=== PATIENT | female | born 1975 | race Caucasian/White ===

== ENCOUNTER 2025-01-23 08:39 | Inpatient (IN) | payer BC ==
[~2025-01-23] VITALS: Ht 149.9 cm; Wt 47.0 kg
[2025-01-23 09:46] LABS: BASOPHILS ABSOLUTE AUTO 0.10 K/mm3 (0.00-0.23); BASOPHILS PERCENT AUTO 1 % (0-2); EOSINOPHILS ABSOLUTE AUTO 0.19 K/mm3 (0.00-0.68); EOSINOPHILS PERCENT AUTO 2 % (0-6); Hematocrit 41.5 % (33.0-51.0); Hemoglobin 13.7 g/dL (11.5-16.0); IMMATURE GRAN ABSOLUTE AUTO 0.02 K/mm3 (0.00-0.10); IMMATURE GRAN PERCENT AUTO 0 % (0-1); LYMPHOCYTES ABSOLUTE AUTO 1.66 K/mm3 (0.84-5.20); LYMPHOCYTES PERCENT AUTO 17 % (21-46); MONOCYTES ABSOLUTE AUTO 0.74 K/mm3 (0.16-1.47); MONOCYTES PERCENT AUTO 8 % (4-13); Mean Corpuscular HGB Conc 33.0 g/dL (31.5-36.5); Mean Corpuscular Volume 86 fL (80-100); NEUTROPHILS ABSOLUTE AUTO 7.08 K/mm3 (1.96-9.15); NEUTROPHILS PERCENT AUTO 72 % (41-73); NRBC ABSOLUTE 0.00 K/mm3 (0.00-0.02); NRBC Auto 0.0 /100 WBC (0.0-0.2); Platelet Count 382 K/mm3 (150-400); RDW Coefficient Variation 13.8 % (11.7-14.2); RDW Standard Deviation 43.4 fL (35.1-46.3)
[2025-01-23 10:27] LABS: Alanine Aminotransfer (ALT/SGP 66.0 U/L (12-78); Albumin, Blood 4.0 g/dL (3.4-5.0); Albumin/Globulin Ratio 1.2 (0.8-1.8); Anion Gap 9.0 mmol/L (3-11); Aspartate Aminotrans (AST/SGOT 24.0 U/L (12-37); Bilirubin, Total 0.7 mg/dL (0.1-1.0); Blood Urea Nitrogen 11.0 mg/dL (8-24); CO2, Blood 23.0 mmol/L (21-32); Calcium, Blood 8.7 mg/dL (8.5-10.1); Chloride, Blood 106.0 mmol/L (98-108); Creatinine, Blood 0.72 mg/dL (0.40-1.00); Globulin, Blood 3.3 g/dL (2.2-4.0); Glucose, Blood 96.0 mg/dL (70-99); Potassium, Blood 4.3 mmol/L (3.5-5.5); Sodium, Blood 134.0 mmol/L (136-145); Total Protein, Blood 7.3 g/dL (6.4-8.2)
[2025-01-23] MEDS ORDERED: NS 1,000 ML IV SCH (11:25)
[2025-01-23] MEDS ORDERED: Ipratropium/Albuterol SulF 2.5-0.5MG/3 ML Amp INH ONE (13:10)
[2025-01-23] MEDS ORDERED: Ipratropium/Albuterol SulF 2.5-0.5MG/3 ML Amp INH SCH (14:35)
[2025-01-23] MEDS ORDERED: FLU VACC TS2025-26(6MOS UP)/PF 45 MCG/0.5 ML SYRINGE IM SCH (14:35)
[2025-01-23] MEDS ORDERED: ESTRADIOL TD (15:55)
[2025-01-23] MEDS ORDERED: SYNTHROID125 MC1 PO (15:56)
[2025-01-23] MEDS ORDERED: PROG100 PO (15:57)
[2025-01-23 16:55] VITALS: BP 125/79
[2025-01-23] MEDS ORDERED: OMEP20ER PO (17:24)
[2025-01-23] MEDS ORDERED: ALBU90OI INH (17:24)
[2025-01-23] MEDS ORDERED: FLUT1DIS2 INH (17:25)
--- NOTE | 2025-01-23 18:23 | NUR ---
ADMISSION PT ADMITTED TO UNIT FROM ER. PT ABLE TO STAND AND AMBULATE INDEPENDENTLY TO BED WITHOUT DIFFICULTY. ARRIVES ON 3 L/MIN VIA NC, SATING 92-96%. PT REPORTS SOB IMPROVED, PT HAS NOT COUGHED UP ANY BLOOD SINCE ARRIVING TO UNIT. LUNG SOUNDS DIMINISHED T/O, MORE SO ON R SIDE R/T PNEUMOTHORAX. 2 RN SKIN CHECK COMPLETED, BRUISING ONLY. MED REC COMPLETED - PT NO LONGER TAKES PROGESTERONE, RN UPDATED PROVIDER AND GOT TELEPHONE ORDERS TO DC PROGESTERONE. PT ORIENTED TO CALL SYSTEM AND FALL PREVENTION. PT CURRENTLY RESTING IN BED WITH BED IN LOWEST POSITION AND CALL LIGHT IN REACH. SPOUSE AT BEDSIDE.
[2025-01-23 20:41] VITALS: BP 98/76
[2025-01-24 04:34] VITALS: BP 91/70
--- NOTE | 2025-01-24 05:21 | NUR ---
SHIFT SUMMARY PT C/O RIGHT UPPER CHEST PAIN, WORSE WITH COUGHING- TYLENOL GIVEN PER [facility] WTIH RELIEF STATED. PT OOB TO BATHROOM INDEPENDENTLY WITH STEADY GAIT. CONTINUOUS PULSE OX PLACED- PT MAINTAINED ON 3L NC WITH O2 SATS > 94%. PT SLEPT LONG INTERVALS DURING THE NIGHT.
[2025-01-24 05:23] LABS: BASOPHILS ABSOLUTE AUTO 0.03 K/mm3 (0.00-0.23); BASOPHILS PERCENT AUTO 0 % (0-2); EOSINOPHILS ABSOLUTE AUTO 0.00 K/mm3 (0.00-0.68); EOSINOPHILS PERCENT AUTO 0 % (0-6); Hematocrit 40.9 % (33.0-51.0); Hemoglobin 13.5 g/dL (11.5-16.0); IMMATURE GRAN ABSOLUTE AUTO 0.03 K/mm3 (0.00-0.10); IMMATURE GRAN PERCENT AUTO 0 % (0-1); LYMPHOCYTES ABSOLUTE AUTO 1.03 K/mm3 (0.84-5.20); LYMPHOCYTES PERCENT AUTO 10 % (21-46); MONOCYTES ABSOLUTE AUTO 0.53 K/mm3 (0.16-1.47); MONOCYTES PERCENT AUTO 5 % (4-13); Mean Corpuscular HGB Conc 33.0 g/dL (31.5-36.5); Mean Corpuscular Volume 87 fL (80-100); NEUTROPHILS ABSOLUTE AUTO 8.70 K/mm3 (1.96-9.15); NEUTROPHILS PERCENT AUTO 84 % (41-73); NRBC ABSOLUTE 0.00 K/mm3 (0.00-0.02); NRBC Auto 0.0 /100 WBC (0.0-0.2); Platelet Count 393 K/mm3 (150-400); RDW Coefficient Variation 13.4 % (11.7-14.2); RDW Standard Deviation 42.5 fL (35.1-46.3)
[2025-01-24 06:20] LABS: Alanine Aminotransfer (ALT/SGP 55.0 U/L (12-78); Albumin, Blood 3.6 g/dL (3.4-5.0); Albumin/Globulin Ratio 1.2 (0.8-1.8); Anion Gap 11.0 mmol/L (3-11); Aspartate Aminotrans (AST/SGOT 16.0 U/L (12-37); Bilirubin, Total 0.4 mg/dL (0.1-1.0); Blood Urea Nitrogen 10.0 mg/dL (8-24); CO2, Blood 22.0 mmol/L (21-32); Calcium, Blood 8.5 mg/dL (8.5-10.1); Chloride, Blood 106.0 mmol/L (98-108); Creatinine, Blood 0.55 mg/dL (0.40-1.00); Globulin, Blood 3.0 g/dL (2.2-4.0); Glucose, Blood 120.0 mg/dL (70-99); Potassium, Blood 3.6 mmol/L (3.5-5.5); Sodium, Blood 135.0 mmol/L (136-145); Total Protein, Blood 6.6 g/dL (6.4-8.2)
[2025-01-24 07:29] VITALS: BP 98/56
[2025-01-24] MEDS ORDERED: Enoxaparin 40 MG/0.4 ML SYR SC SCH (09:00)
[2025-01-24] MEDS ORDERED: Morphine Sulfate 4 MG/1 ML Injection IV PRN (09:15)
--- NOTE | 2025-01-24 14:32 | NUR ---
UPon receiving a referral for spiritual care, I visited the patient. SHe immediately shares about her newer diagnosis of cancer and about the fears that she has. We talk about her her family, her support system and we spent quit some time exploring her spiritual journey and the beliefs she has. We discuss end of life, the after life and mental/emotional/spiritual ch the goes hand in hand with the physical ch. I reinforced helpful attidues and perspectives, normalized her feelings and fears and provided therapeutic listening, theological insights, anxiety containment and prayer. The patient responded well and showed signs greater peace. I will continue to remain available to the patient and family.
[2025-01-24] MEDS ORDERED: Ondansetron HCl 2 MG / ML 2ML Vial IV PRN (15:00)
[2025-01-24 15:43] VITALS: BP 107/64
--- NOTE | 2025-01-24 17:17 | NUR ---
PT ALERT AND ORIENTED X4, CONTINUES TO BE ON 3L NC WITH SATS 95-98%, MORPHINE IV PRN FOR EASE OF BREATHING-PER PT THIS HELPS VERY WELL. PT DID BECOME NAUSEAOUS AND HAD EMESIS X1 AFTER TWO MORPHINE DOSES, ZOFRAN GIVEN AND HELPED TREAT SYMPTOMS. TIME STUDY STATISTICIAN DR MATHEW GAVE PT RESULTS ON LUNG BIOPSIES BEING CANCEROUS-PT SINCE HAS BEEN TEARFUL AND HAS BECOME ANXIOUS. CONSULTS FOR PALLIATIVE CARE, SPIRITUAL CARE ORDERED AND BOTH FOLLOWED UP WITH PATIENT. ANTIANXIETY PRN MED ALSO ORDERED AND AVAILABLE IN [facility]. PT INDEPENDENT IN ROOM, STEADY ON FEET AND ABLE TO SELF MANAGE OXYGEN TUBING. CALL LIGHT IN REACH, PT REQUESTS ASSISTANCE WHEN NEEDED. BEDSIDE TABLE IN REACH.
[2025-01-24 19:26] VITALS: BP 91/62
[2025-01-24 21:33] VITALS: BP 107/68
[2025-01-25 04:36] VITALS: BP 119/84
[2025-01-25 05:10] LABS: BASOPHILS ABSOLUTE AUTO 0.05 K/mm3 (0.00-0.23); BASOPHILS PERCENT AUTO 1 % (0-2); EOSINOPHILS ABSOLUTE AUTO 0.04 K/mm3 (0.00-0.68); EOSINOPHILS PERCENT AUTO 0 % (0-6); Hematocrit 39.7 % (33.0-51.0); Hemoglobin 13.2 g/dL (11.5-16.0); IMMATURE GRAN ABSOLUTE AUTO 0.02 K/mm3 (0.00-0.10); IMMATURE GRAN PERCENT AUTO 0 % (0-1); LYMPHOCYTES ABSOLUTE AUTO 2.16 K/mm3 (0.84-5.20); LYMPHOCYTES PERCENT AUTO 21 % (21-46); MONOCYTES ABSOLUTE AUTO 0.61 K/mm3 (0.16-1.47); MONOCYTES PERCENT AUTO 6 % (4-13); Mean Corpuscular HGB Conc 33.2 g/dL (31.5-36.5); Mean Corpuscular Volume 86 fL (80-100); NEUTROPHILS ABSOLUTE AUTO 7.53 K/mm3 (1.96-9.15); NEUTROPHILS PERCENT AUTO 72 % (41-73); NRBC ABSOLUTE 0.00 K/mm3 (0.00-0.02); NRBC Auto 0.0 /100 WBC (0.0-0.2); Platelet Count 385 K/mm3 (150-400); RDW Coefficient Variation 13.7 % (11.7-14.2); RDW Standard Deviation 42.2 fL (35.1-46.3)
[2025-01-25 05:32] LABS: Alanine Aminotransfer (ALT/SGP 46.0 U/L (12-78); Albumin, Blood 3.6 g/dL (3.4-5.0); Albumin/Globulin Ratio 1.2 (0.8-1.8); Anion Gap 8.0 mmol/L (3-11); Aspartate Aminotrans (AST/SGOT 14.0 U/L (12-37); Bilirubin, Total 0.4 mg/dL (0.1-1.0); Blood Urea Nitrogen 12.0 mg/dL (8-24); CO2, Blood 27.0 mmol/L (21-32); Calcium, Blood 8.6 mg/dL (8.5-10.1); Chloride, Blood 106.0 mmol/L (98-108); Creatinine, Blood 0.58 mg/dL (0.40-1.00); Globulin, Blood 3.0 g/dL (2.2-4.0); Glucose, Blood 92.0 mg/dL (70-99); Potassium, Blood 3.8 mmol/L (3.5-5.5); Sodium, Blood 137.0 mmol/L (136-145); Total Protein, Blood 6.6 g/dL (6.4-8.2)
--- NOTE | 2025-01-25 06:07 | NUR ---
SHIFT SUMMARY: PT IS AOX4, PLEASANT, COOPERATIVE, BUT ALSO A LITTLE TEARFUL AND SAD. GAIT STEADY, PATIENT AMBULATES TO BR INDEPENDENTLY AND CALLS FOR ASSISTANCE APPROPRIATELY. PT C/O RIGHT UPPER CHEST PAIN AND SOME ANXIETY BEFORE BEDTIME, TREATED PER THE APR. PT AMBULATED IN THE HALLWAYS THIS AM. O2 SATS MAINTAINED >95% THIS SHIFT, NO ACUTE EVENTS. PT RELAXING IN BED DRINKING HOT COFFEE, CALL LIGHT AND BEDSIDE TABLE WITHIN REACH.
[2025-01-25 08:01] VITALS: BP 121/69
--- NOTE | 2025-01-25 09:57 | NUR ---
PALLIATIVE CARE CONSULT: CONSULT RECEIVED FOR CANCER WITH NEW DIAGNOSIS. REVIEWED MEDICAL RECORD. NO POLST OR AD ON FILE OR WITH [facility]. PT AWAITING MRI OF HEAD. WAITING FOR FURTHER BIOPSY REPORTS.
[2025-01-25] MEDS ORDERED: BUSP10 PO (15:52)
[2025-01-25] MEDS ORDERED: DOXY100 PO (15:52)
[2025-01-25] MEDS ORDERED: PRED20 PO (15:53)
[2025-01-25 16:35] VITALS: BP 106/83
--- NOTE | 2025-01-25 17:30 | NUR ---
PALLIATIVE CARE NOTE: ATTEMPTED TO SEE PT. ACCORDING TO PRIMARY RN PT WENT ON WALK WITH SPOUSE TO THE CHAPEL.
--- NOTE | 2025-01-25 17:43 | NUR ---
SHIFT SUMMARY: PATIENT IS STAYING ONE MORE NIGHT PER DR. SUE AFTER HE MET WITH THE PATIENT AND WENT OVER HEAD CT RESULTS. PATIENT DOING BETTER WITH NAUSEA NO MORE VOMITING SINCE PO PHENERGAN. FOLLOWED UP WITH PALLATIVE ON PATIENT. PATIENT CURRENTLY ON WALK WITH TO CHAPEL. PLAN OF CARE ONGOING; PLAN IS FOR ONCOLOGY TO BE INPATIENT CONSULTED TOMORROW 01/26/25 PER VIKRAM.
[2025-01-25] MEDS ORDERED: LORazepam 2 MG/ML 1ML Injection IV PRN (18:20)
[2025-01-25 19:27] VITALS: BP 105/70
[2025-01-26 03:38] VITALS: BP 99/71
--- NOTE | 2025-01-26 06:30 | NUR ---
NO ACUTE CHANGES OVERNIGHT. PT BEGAN EVENING WALKING SEVERAL LAPS AROUND THE UNIT. ASSESSMENT REMAINS UNCHANGED FROM PREVIOUS. PT IS ANXIOUS AT TIMES R/T RECENT CX DIAGNOSIS. STATES THAT ATIVAN HELPS A LOT TO BE ABLE TO EXPRESS HER FEELINGS RELATE TO HER ILLNESS. SAT WITH PT FOR ~1HR DISCUSSING HER FEELINGS ABOUT LIFE AND THE WORLD AROUND HER. PT EXPRESSED A DESIRE TO LEARN MORE ABOUT ROSELIA AND PHILOSOPHY. TEARY AT TIMES BUT NEVER UNPLEASANT. USES CALL LIGHT APPROPRIATELY.
[2025-01-26 07:29] VITALS: BP 103/73
[2025-01-26] MEDS ORDERED: Ipratropium/Albuterol SulF 2.5-0.5MG/3 ML Amp INH PRN (13:30)
[2025-01-26] MEDS ORDERED: DECADRON4 M1 PO (16:07)
[2025-01-26] MEDS ORDERED: PROM25 PO (16:08)
== END 2025-01-26 17:00 | disposition home health service (06) | DRG 189 ==
LOC: ER 08:39 → MEDS 08:40 → ENPENDDIS 01-26 15:48 → MEDS 01-26 17:00
PROVIDERS: Student in an Organized Health Care Education/Training Program; ADMIT Family Medicine
DX: J96.01 Acute respiratory failure with hypoxia (principal); J44.1 Chronic obstructive pulmonary disease with (acute) exacerbation; R04.2 Hemoptysis; C34.91 Malignant neoplasm of unspecified part of right bronchus or lung; C79.31 Secondary malignant neoplasm of brain; E87.1 Hypo-osmolality and hyponatremia; J95.811 Postprocedural pneumothorax; Y84.8 Other medical procedures as the cause of abnormal reaction of the patient, or of later complication, without mention of misadventure at the time of the procedure; F41.9 Anxiety disorder, unspecified; E03.9 Hypothyroidism, unspecified; I95.9 Hypotension, unspecified; N95.8 Other specified menopausal and perimenopausal disorders; R00.1 Bradycardia, unspecified; Z88.0 Allergy status to penicillin; Z87.891 Personal history of nicotine dependence
CPT/HCPCS: 36415; 70470; 70553; 71046; 71260; 80053; 84484; 85025; 93005; 93010; 94640; 94664; 94760; 94761; 94762; 96365-59; 96366-59; 96372; 96374; 96375; 96375-59; 96376; 99285-25; A9270; A9579; G0378; J0456; J1650; J2060; J2270; J2405; J2919; J7030; J7050; J7512; Q9967

== ENCOUNTER 2025-02-07 10:02 | Emergency (ER) | payer BC, OTHER ==
[~2025-02-07] VITALS: Ht 149.9 cm; Wt 49.0 kg
[~2025-02-07 10:02] MED LIST: ALBU90OI INH; BUSP10 PO; DECADRON4 M1 PO; DOXY100 PO; ESTRADIOL TD; FLUT1DIS2 INH; OMEP20ER PO; PRED20 PO; PROG100 PO; PROM25 PO; SYNTHROID125 MC1 PO
[2025-02-07] MEDS ORDERED: Ondansetron HCl 2 MG / ML 2ML Vial IV PRN (10:25)
[2025-02-07 10:37] LABS: Hematocrit 40.7 % (33.0-51.0); Hemoglobin 14.0 g/dL (11.5-16.0); Mean Corpuscular HGB Conc 34.4 g/dL (31.5-36.5); Mean Corpuscular Volume 84 fL (80-100); NRBC ABSOLUTE 0.00 K/mm3 (0.00-0.02); NRBC Auto 0.0 /100 WBC (0.0-0.2); Platelet Count 477 K/mm3 (150-400); RDW Coefficient Variation 13.8 % (11.7-14.2); RDW Standard Deviation 42.5 fL (35.1-46.3)
[2025-02-07 11:10] LABS: Alanine Aminotransfer (ALT/SGP 348.0 U/L (12-78); Albumin, Blood 2.9 g/dL (3.4-5.0); Albumin/Globulin Ratio 0.9 (0.8-1.8); Anion Gap 12.0 mmol/L (3-11); Aspartate Aminotrans (AST/SGOT 59.0 U/L (12-37); Bilirubin, Total 0.3 mg/dL (0.1-1.0); Blood Urea Nitrogen 32.0 mg/dL (8-24); CO2, Blood 25.0 mmol/L (21-32); Calcium, Blood 8.3 mg/dL (8.5-10.1); Chloride, Blood 96.0 mmol/L (98-108); Creatinine, Blood 0.33 mg/dL (0.40-1.00); Globulin, Blood 3.2 g/dL (2.2-4.0); Glucose, Blood 129.0 mg/dL (70-99); Potassium, Blood 4.9 mmol/L (3.5-5.5); Sodium, Blood 128.0 mmol/L (136-145); Total Protein, Blood 6.1 g/dL (6.4-8.2)
[2025-02-07 11:26] LABS: BAND PERCENT MAN 5 % (0-8); BASOPHILS ABSOLUTE MAN 0.00 K/mm3 (0.00-0.23); BASOPHILS PERCENT MAN 0 % (0-2); EOSINOPHILS ABSOLUTE MAN 0.00 K/mm3 (0.00-0.68); EOSINOPHILS PERCENT MAN 0 % (0-6); LYMPHOCYTES ABSOLUTE MAN 1.25 K/mm3 (0.84-5.20); LYMPHOCYTES PERCENT MAN 5 % (21-46); METAMYELOCYTE ABSOLUTE MAN 0.75 K/mm3 (0.00-0.00); METAMYELOCYTE PERCENT MAN 3 % (0-0); MONOCYTES ABSOLUTE MAN 1.00 K/mm3 (0.16-1.47); MONOCYTES PERCENT MAN 4 % (4-13); MYELOCYTE ABSOLUTE MAN 0.25 K/mm3 (0.00-0.00); MYELOCYTE PERCENT MAN 1 % (0-0); NEUTROPHILS ABSOLUTE MAN 21.79 K/mm3 (1.96-9.15); SEG NEUTROPHILS PERCENT MAN 82 % (41-73)
[2025-02-07 13:45] VITALS: BP 128/78
== END 2025-02-07 13:55 | disposition home or self-care (01) ==
LOC: ER 10:02
PROVIDERS: Emergency Medicine
DX: R07.9 Chest pain, unspecified (principal); Z59.89 Other problems related to housing and economic circumstances; Z88.0 Allergy status to penicillin
CPT/HCPCS: 71045; 76705; 80053; 83690; 84484; 85025; 93005; 93010; 99285-25

== ENCOUNTER 2025-02-12 08:29 | Inpatient (IN) | payer BC, OTHER ==
[~2025-02-12] VITALS: Ht 149.9 cm; Wt 95.5 kg
[2025-02-12] VITALS (11 sets, daily range): BP systolic 92–126; BP diastolic 59–94
[2025-02-12 09:15] LABS: BASOPHILS ABSOLUTE AUTO 0.09 K/mm3 (0.00-0.23); BASOPHILS PERCENT AUTO 1 % (0-2); EOSINOPHILS ABSOLUTE AUTO 0.03 K/mm3 (0.00-0.68); EOSINOPHILS PERCENT AUTO 0 % (0-6); Hematocrit 42.3 % (33.0-51.0); Hemoglobin 14.4 g/dL (11.5-16.0); IMMATURE GRAN ABSOLUTE AUTO 0.68 K/mm3 (0.00-0.10); IMMATURE GRAN PERCENT AUTO 4 % (0-1); LYMPHOCYTES ABSOLUTE AUTO 0.63 K/mm3 (0.84-5.20); LYMPHOCYTES PERCENT AUTO 3 % (21-46); MONOCYTES ABSOLUTE AUTO 1.38 K/mm3 (0.16-1.47); MONOCYTES PERCENT AUTO 7 % (4-13); Mean Corpuscular HGB Conc 34.0 g/dL (31.5-36.5); Mean Corpuscular Volume 84 fL (80-100); NEUTROPHILS ABSOLUTE AUTO 16.80 K/mm3 (1.96-9.15); NEUTROPHILS PERCENT AUTO 86 % (41-73); NRBC ABSOLUTE 0.00 K/mm3 (0.00-0.02); NRBC Auto 0.0 /100 WBC (0.0-0.2); Platelet Count 447 K/mm3 (150-400); RDW Coefficient Variation 13.6 % (11.7-14.2); RDW Standard Deviation 42.1 fL (35.1-46.3)
[2025-02-12 09:28] LABS: Acetaminophen, Random 5.7 ug/mL (10.0-30.0); Alanine Aminotransfer (ALT/SGP 201 U/L (12-78); Albumin, Blood 3.0 g/dL (3.4-5.0); Albumin/Globulin Ratio 1.0 (0.8-1.8); Anion Gap 17 mmol/L (3-11); Aspartate Aminotrans (AST/SGOT 51 U/L (12-37); Bilirubin, Total 0.5 mg/dL (0.1-1.0); Blood Urea Nitrogen 26 mg/dL (8-24); CO2, Blood 22 mmol/L (21-32); Calcium, Blood 8.4 mg/dL (8.5-10.1); Chloride, Blood 94 mmol/L (98-108); Creatinine, Blood 0.48 mg/dL (0.40-1.00); Ethanol (Alcohol), Blood, Med <3 mg/dL; Globulin, Blood 3.1 g/dL (2.2-4.0); Glucose, Blood 168 mg/dL (70-99); Potassium, Blood 4.6 mmol/L (3.5-5.5); Salicylate <1.7 mg/dL (2.8-20.0); Sodium, Blood 128 mmol/L (136-145); Total Protein, Blood 6.1 g/dL (6.4-8.2)
[2025-02-12] MEDS ORDERED: LORazepam 2 MG/ML 1ML Injection IV ONE ×2 (09:45→14:15)
[2025-02-12] MEDS ORDERED: LORazepam 2 MG/ML 1ML Injection IM ONE (10:05)
[2025-02-12] MEDS ORDERED: NS 1,000 ML IV SCH ×2 (10:50→13:10)
[2025-02-12 11:22] LABS: Source, Urine Clean Catch
[2025-02-12 11:30] LABS: Bilirubin, Urine Neg (Neg); Glucose Qualitative, Urine 1+ (Neg); Ketones, Urine Neg (Neg); Leukocyte Esterase, Urine Neg (Neg); Protein, Urine Neg (Neg); Specific Gravity, Urine 1.005 (1.003-1.022); Urobilinogen, Urine NORM (Normal)
[2025-02-12 11:31] LABS: Color, Urine Pale Yellow (P-Yellow)
[2025-02-12 11:47] LABS: U Amphetamine Screen Not Detected; U Barbiturate Screen Not Detected; U Benzodiazapine Screen Not Detected; U Buprenorphine Screen Not Detected; U Cannabinoids Screen DETECTED; U Cocaine Screen Not Detected; U Methadone Screen Not Detected; U Methamphetamine Screen Not Detected; U Opiates Screen Not Detected; U Oxycodone Screen Not Detected; U Phencyclidine Screen Not Detected
[2025-02-12] MEDS ORDERED: FLU VACC TS2025-26(6MOS UP)/PF 45 MCG/0.5 ML SYRINGE IM SCH (13:10)
--- NOTE | 2025-02-12 15:43 | NUR ---
Palliative care attempted visit: Attempted visit with pt while still in the ER. was told pt was to confused and aggressive for visit. Was told spouse was on his way in. Followed up later but spouse did not stay long enough for visit from PC. Spoke to Dr. Chi and he will treat pt in ICU for now to see if symptoms can be managed and will discuss GOC when pt more alert.
[2025-02-12] MEDS ORDERED: SYNTHROID88 MCG PO ×2 (16:12)
--- NOTE | 2025-02-12 17:18 | NUR ---
ADMISSION: PT IS A NEW ADMIT, ARRIVING TO ICU APPROX 1710. PT ASSISTED TO NEW BED VIA SLIDE SHEET. UPON TRANSFER TO NEW BED PT APPEARS TO BE SLEEPING, IS NOT WAKING UP LONG ENOUGH TO ANSWER QUESTIONS, DOES RESPOND TO HER NAME AND STATES 'S NAME WELL HER THEN STATES "NOW LET ME FUCKING SLEEP". MOST OTHER INFORMATION HAS BEEN OBTAINED F/ PT's SPOUSE. PER SPOUSE, A FEW MONTHS AGO PT NOTICED THAT SHE WAS HAVING A HARD TIME THINKING CLEARLY. THIS PROGRESSED TO DIZZINESS, DIFFICULTY MAINTAINING BALANCE. OVER THAT TIMEFRAME A LUNG BIOPSY WAS TAKEN AND PT WAS RECENTLY DX'd WITH LUNG CA W/ METS TO BRAIN. PT RECEIVED HER THIRD DOSE OF RADIATION YESTERDAY, SPOUSE NOTICED INCREASED AGITATION/PACING/INABILITY TO SLEEP LAST NOC AND DECIDED TO BRING HER IN TO ER FOR EVAL. NEXT RADIATION APPT IS SUPPOSED TO BE 02/13/25. SINCE ARRIVAL TO UNIT, PT HAS BEEN SLEEPING. RA SATS >93%, RESPIRATIONS EVEN AND UNLABORED, SR ON MONITOR, RATE 80. ATTENDS C/D/I. SKIN IS PALE W/DUSKY FINGERS, CAP REFILL <3 SEC. CONSULTS THAT HAVE BEEN ORDERED: -ST EVAL FOR PT SPOUSE REPORT OF PT DIFFICULTY SWALLOWING THIN LIQUIDS. -PALLIATIVE CARE FOR ESTABLISHING GOALS OF CARE.
--- NOTE | 2025-02-12 18:19 | NUR ---
1800 assumed care of patient she is resting in bed layin on left side. rr unlabored vs stable pulse 74, bp 95/61 map 72 spo2 94% sitter at bedside. due to high si
[2025-02-12] MEDS ORDERED: LORazepam 2 MG/ML 1ML Injection IV PRN (23:30)
--- NOTE | 2025-02-12 23:45 | NUR ---
UPDATE BELONGING BAG PUT IN DIRTY HOLD IN LOCKED CABINET.
[2025-02-13] VITALS (20 sets, daily range): BP systolic 100–139; BP diastolic 64–100
[2025-02-13 04:42] LABS: BASOPHILS ABSOLUTE AUTO 0.07 K/mm3 (0.00-0.23); BASOPHILS PERCENT AUTO 0 % (0-2); EOSINOPHILS ABSOLUTE AUTO 0.01 K/mm3 (0.00-0.68); EOSINOPHILS PERCENT AUTO 0 % (0-6); Hematocrit 39.0 % (33.0-51.0); Hemoglobin 13.3 g/dL (11.5-16.0); IMMATURE GRAN ABSOLUTE AUTO 0.52 K/mm3 (0.00-0.10); IMMATURE GRAN PERCENT AUTO 2 % (0-1); LYMPHOCYTES ABSOLUTE AUTO 0.29 K/mm3 (0.84-5.20); LYMPHOCYTES PERCENT AUTO 1 % (21-46); MONOCYTES ABSOLUTE AUTO 0.82 K/mm3 (0.16-1.47); MONOCYTES PERCENT AUTO 3 % (4-13); Mean Corpuscular HGB Conc 34.1 g/dL (31.5-36.5); Mean Corpuscular Volume 85 fL (80-100); NEUTROPHILS ABSOLUTE AUTO 30.20 K/mm3 (1.96-9.15); NEUTROPHILS PERCENT AUTO 95 % (41-73); NRBC ABSOLUTE 0.00 K/mm3 (0.00-0.02); NRBC Auto 0.0 /100 WBC (0.0-0.2); Platelet Count 389 K/mm3 (150-400); RDW Coefficient Variation 13.9 % (11.7-14.2); RDW Standard Deviation 43.4 fL (35.1-46.3)
[2025-02-13 05:11] LABS: Alanine Aminotransfer (ALT/SGP 169.0 U/L (12-78); Albumin, Blood 2.7 g/dL (3.4-5.0); Albumin/Globulin Ratio 0.9 (0.8-1.8); Anion Gap 14.0 mmol/L (3-11); Aspartate Aminotrans (AST/SGOT 24.0 U/L (12-37); Bilirubin, Total 0.4 mg/dL (0.1-1.0); Blood Urea Nitrogen 21.0 mg/dL (8-24); CO2, Blood 20.0 mmol/L (21-32); Calcium, Blood 8.3 mg/dL (8.5-10.1); Chloride, Blood 99.0 mmol/L (98-108); Creatinine, Blood 0.37 mg/dL (0.40-1.00); Globulin, Blood 2.9 g/dL (2.2-4.0); Glucose, Blood 256.0 mg/dL (70-99); Magnesium, Blood 2.3 mg/dL (1.6-2.4); Phosphorus, Blood 2.7 mg/dL (2.5-4.9); Potassium, Blood 3.4 mmol/L (3.5-5.5); Sodium, Blood 130.0 mmol/L (136-145); Total Protein, Blood 5.6 g/dL (6.4-8.2)
--- NOTE | 2025-02-13 06:36 | NUR ---
SHIFT SUMMARY BAYT SLEPT THROUGH FIRST 4 HOURS OF SHIFT. PATEINT WOKE VERY PLEASANT. PATIENT HEAIR AND BODY WERE IN NEED OF A SHOWER. NADEEM WANTED TO TAKE A SHOWER. NURSE AND SITTER GAVE PATIENT SHOWER AND HELP WASH HAIR AND BODY. PATIENT SAID TAHNK YOU SO MUCH TAHT HER CAREGIVER IS TIRED AND DOES NOT WANRT TO GIVE HER A SHOWER OR MEDS OR WATER WHEN SHE NEEDS THEM. PATIENT STATES SHE WANTS TO DIVORCE HIM AND MAYBE GO ON HOSPICE. PATIENT'S IS WORRIED ABOUT PERSONAL ITEMS AND CELL PHONE. DR GARCIA HERE THIS MORNING @ 0630 TO TALK WITH PATIENT TO ASSESS SI INTENTIONS AND HOW TO MOVE FORWARD FROM HERE. NADEEM IS A&O X4 AND AFERIBLE THROUGH SHIFT. HR IN THE 70-90'S AND SBP 110-120'S. ON ROOM AIR SATTING ABOVE 95%. PATIENT HAS ATTENDS WITH PUREWICK IN PLACE. PATIENT CAN USE BEDSIDE COMMODE WITH WALKER AND STAND BY ASSIST BUT LEGS BILATERALLY WEAK. RIGHT AC AND LEFT WRIST PERIPHERAL SALINE LOCKED. PATIENT DOES HAVE CALL LIGHT WITHIN REACH.
[2025-02-13] MEDS ORDERED: HYDROmorphone HCl/Pf 1MG SYR IV PRN (07:20)
[2025-02-13] MEDS ORDERED: Formoterol/Mometasone MDI 5/100 mcg 13 GM INH SCH (07:35)
[2025-02-13] MEDS ORDERED: Albuterol HFA200 ACT/6.7 GM INH INH PRN (07:35)
[2025-02-13] MEDS ORDERED: Potassium Phos/Sodium Phos 250 MG PACK PO SCH (08:00)
[2025-02-13] MEDS ORDERED: Enoxaparin 40 MG/0.4 ML SYR SC SCH (09:00)
--- NOTE | 2025-02-13 14:52 | NUR ---
GAVE OKAY TO D/C [facility] D/T LOW SUICIDE RISK AT THIS TIME. PT INVOLUNTARY HOLD ALSO D/C
[2025-02-14] VITALS (7 sets, daily range): BP systolic 115–138; BP diastolic 76–88
[2025-02-14 03:18] LABS: BASOPHILS ABSOLUTE AUTO 0.02 K/mm3 (0.00-0.23); BASOPHILS PERCENT AUTO 0 % (0-2); EOSINOPHILS ABSOLUTE AUTO 0.03 K/mm3 (0.00-0.68); EOSINOPHILS PERCENT AUTO 0 % (0-6); Hematocrit 38.2 % (33.0-51.0); Hemoglobin 13.3 g/dL (11.5-16.0); IMMATURE GRAN ABSOLUTE AUTO 0.23 K/mm3 (0.00-0.10); IMMATURE GRAN PERCENT AUTO 2 % (0-1); LYMPHOCYTES ABSOLUTE AUTO 0.35 K/mm3 (0.84-5.20); LYMPHOCYTES PERCENT AUTO 3 % (21-46); MONOCYTES ABSOLUTE AUTO 0.40 K/mm3 (0.16-1.47); MONOCYTES PERCENT AUTO 3 % (4-13); Mean Corpuscular HGB Conc 34.8 g/dL (31.5-36.5); Mean Corpuscular Volume 83 fL (80-100); NEUTROPHILS ABSOLUTE AUTO 12.92 K/mm3 (1.96-9.15); NEUTROPHILS PERCENT AUTO 93 % (41-73); NRBC ABSOLUTE 0.00 K/mm3 (0.00-0.02); NRBC Auto 0.0 /100 WBC (0.0-0.2); Platelet Count 364 K/mm3 (150-400); RDW Coefficient Variation 13.8 % (11.7-14.2); RDW Standard Deviation 41.5 fL (35.1-46.3)
[2025-02-14 03:40] LABS: Alanine Aminotransfer (ALT/SGP 140.0 U/L (12-78); Albumin, Blood 2.6 g/dL (3.4-5.0); Albumin/Globulin Ratio 0.9 (0.8-1.8); Anion Gap 10.0 mmol/L (3-11); Aspartate Aminotrans (AST/SGOT 22.0 U/L (12-37); Bilirubin, Total 0.6 mg/dL (0.1-1.0); Blood Urea Nitrogen 20.0 mg/dL (8-24); CO2, Blood 29.0 mmol/L (21-32); Calcium, Blood 8.1 mg/dL (8.5-10.1); Chloride, Blood 99.0 mmol/L (98-108); Creatinine, Blood 0.35 mg/dL (0.40-1.00); Globulin, Blood 3.0 g/dL (2.2-4.0); Glucose, Blood 164.0 mg/dL (70-99); Magnesium, Blood 2.2 mg/dL (1.6-2.4); Phosphorus, Blood 3.4 mg/dL (2.5-4.9); Potassium, Blood 3.9 mmol/L (3.5-5.5); Sodium, Blood 134.0 mmol/L (136-145); Total Protein, Blood 5.6 g/dL (6.4-8.2)
--- NOTE | 2025-02-14 05:06 | NUR ---
SHIFT SUMMARY uneventful. pt slept well. VSS. good UOP via purewick. c/o headache - given tylenol
--- NOTE | 2025-02-14 09:59 | NUR ---
REPORT RECIEVED FROM MARTI DIETRICH ABOUT 0700 THIS MORNING THE PT IS ALERT AND ORIENTEDX3-4, IS REPORTING VISUAL AND AUDITORY HALLUCINATIONS. SHE HAS STATED HER LATE GRANDMOTHER SERENE CHENEY BEEN COMING TO SEE HER AND THE PT WAS VIEWED TALKING INT THE ROOM TO SOMEONE WHO WAS NOT THERE. THE PT STATED THAT HER GRANDMA WAS WANTING TO TAKE HER HOME AND BE WITH HER. SHE STATED IT MADE HER FEEL AT EASE. ALSO, THE PT HAS BEEN CRYING MAJORITY OF THE MORNING AND IS FEARFUL SHE IS DYING. THIS WAS SHARED WITH DR. GARCIA, PT'S HOSPITALIST, AND NEUROLOGY MANAGER THIERRY. JOVANI DIETRICH MEDICATED THE PT WITH PO ATIVAN PER EM[facility]. THE PT HAS BEEN SR 70'S-80'S ON MONITOR AND BP IS STABLE. SHE DENIES ANY ANGINA OR CHEST PRESSURE. SHE IS ON RA W/ SP02 >93%. WHEN SHE IS CRYING SHE DOES TEND TO HOLD HER BREATH AND DESATURATES TO MIND-HIGH 80'S. SHE IS REDIRECTABLE AND TAKE DEEP BREATHS AND RESATURATES. SHE WAS PLACED ON CO2 MONITORING IN PERCAUTIONS TO HER IMPENDING DOOM FEELING AND HALLUCINATIONS. SHE WAS GOING TO BE DISCHARGED WITH HOMEHEALTH AND PALLIATVIE BUT THERE ARE NO PHARMACIES OPEN D/T THE HOLIDAYS. THIS WAS DISCUSSED WITH THE PT AND HER SPOUSE. HE IS CURRENTLY AT BEDSIDE VISITING. SEE NOTES FOR ANY UPDATES.
--- NOTE | 2025-02-14 11:10 | NUR ---
CODE STATUS CHANGE THE PT AND HER WERE AT BEDSIDE DISCUSSING HOW THE PT IS DOING. THIS RN UPDATED THE PT'S ON DELAY IN DISCHARGE D.T PHARMACY CLOSURE FROM HOL[place]YS. DURING THIS CONVERSATION THE CONVERSATION OF HOSPICE VS CONTINUEING TREATMENT CAME UP. THEY HAD SOME QUESTIONS FOR DR. GARCIA. ALSO, DURING THIS CONVERSATION THE PT EXPRESSED IF SHE DOES SHE WOULD NOT WANT TO BE RESUSCITATED AND HER WAS IN AGREEMENT. THIS RN DISCUSSED THE CODE STATUS AND WHAT THE MEANS. THE PT BLUNTLY STATED SHE WOULD NOT WANT ANY COMPRESSIONS, INTUBATION, OR SHOCK INTERVENTIONS. SHE WANTS TO BE MADE COMFORTABLE IF ANYTHING DOES HAPPEN. THIS RN CALLED JOSE DE LA GARZA WITH PT'S CONVERSATION AND THEIR QUESTIONS. DR. GARCIA STATED HE WOULD COME TALK WITH THE PT AND HER . THE PT HAS SINCE BECAME A DNR AND A PURPLE WRIST BAND WAS PLACED TO HER RIGHT WRIST WITH JOSE DIETRICH A SECOND NURSE LEG ASSEMBLER. SEE NOTES FOR UPDATES.
--- NOTE | 2025-02-14 16:08 | NUR ---
DISCUSSION WITH DR. GARCIA IN [facility] TO MEDICATIONS AT DISCHARGE. SEE PREVIOUS NOTE. DR. GARCIA CAME TO PT'S ROOM AND SPOKE WITH THE PATIENT AND HER ISAEL. HE WAS ABLE TO ANSWER ALL OF THEIR QUESTIONS. WHEN DR. GARCIA CAME TO DEBRIEF WITH THIS RN WE DISCUSSED DISCHARGE MEDICATIONS FOR TOMORROW. SOME MEDICATIONS DISCUSSED WERE ANTIEMETICS SUCH SL ZOFRAN, ANTI-ANXIETY MEDICATIONS SUCH ORAL ATIVAN, AND OPITATES FOR PAIN MANAGEMENT. THIS WAS DISCUSSED WITH PT WELL. SEE NOTES FOR UPDATES.
[2025-02-14] MEDS ORDERED: Polyethylene Glycol 3350 17 gm PO SCH (21:00)
[2025-02-15 03:14] VITALS: BP 129/88
--- NOTE | 2025-02-15 06:28 | NUR ---
NO ACUTE EVENTS OVERNIGHT. PT WAS TEARFUL INTERMITTENTLY THROUGHOUT NIGHT. PT MEDICATED FOR PAIN AND ANXIETY PER MAR. PT WAS UNABLE TO HAVE A BM ON BEDPAN, SO THIS NURSE ASSISTED PT ONTO BSC. PT WAS ABLE TO HAVE ONE LARGE, SOFT, FORMED BM. PURWICK CHANGED AND IN PLACE. BED LOCKED IN LOWEST POSITION. CALL LIGHT WITHIN REACH.
[2025-02-15] MEDS ORDERED: ACET500 PO ×2 (10:22)
[2025-02-15] MEDS ORDERED: LEVE500 PO ×2 (10:23)
[2025-02-15] MEDS ORDERED: Ativan1 MG PO ×2 (10:24)
[2025-02-15] MEDS ORDERED: ONDA4 PO ×2 (10:25)
[2025-02-15] MEDS ORDERED: OXYC5 PO ×2 (10:29)
[2025-02-15] MEDS ORDERED: MIRALAX17 GM PO ×2 (10:30)
[2025-02-15] MEDS ORDERED: ONDA4ODT MM ×2 (10:32)
--- NOTE | 2025-02-15 12:33 | NUR ---
DISCHARGE SUMMARY PT A&Ox4, CALLS AND COMMUNICATES NEEDS APPROPRIATELY, PT VERY TEARFUL. BP STABLE, SINUS 70's, DENIES CP/PRESSURE. SpO2> 92% RA, DENIES SOB. 1-2 ASSIST TO STAND PIVOT. ALL PT BELONGINGS GATHERED, DISCHARGE INSTRUCTIONS PROVIDED TO PT AND . PT TAKEN OUT VIA WHEELCHAIR AT APPROXIMATELY 1110.
== END 2025-02-15 11:10 | disposition home or self-care (01) | DRG 181 ==
LOC: ER 08:29 → ICUE 13:07
PROVIDERS: Physician Assistant; ADMIT Family Medicine
DX: C34.91 Malignant neoplasm of unspecified part of right bronchus or lung (principal); C79.31 Secondary malignant neoplasm of brain; E87.1 Hypo-osmolality and hyponatremia; G93.49 Other encephalopathy; G62.82 Radiation-induced polyneuropathy; R56.9 Unspecified convulsions; F12.90 Cannabis use, unspecified, uncomplicated; J44.9 Chronic obstructive pulmonary disease, unspecified; E87.6 Hypokalemia; E83.39 Other disorders of phosphorus metabolism; D72.829 Elevated white blood cell count, unspecified; F32.A Depression, unspecified; R73.9 Hyperglycemia, unspecified; T38.0X5A Adverse effect of glucocorticoids and synthetic analogues, initial encounter; E03.9 Hypothyroidism, unspecified; E86.0 Dehydration; R45.1 Restlessness and agitation; F41.9 Anxiety disorder, unspecified; Z88.0 Allergy status to penicillin; Z79.899 Other long term (current) drug therapy; Z98.890 Other specified postprocedural states; Z79.51 Long term (current) use of inhaled steroids; Z79.890 Hormone replacement therapy; Z23 Encounter for immunization
CPT/HCPCS: 36415; 70450; 80053; 80320; 81003; 81025; 82330; 83735; 84100; 85025; 92610; 94640; 94664; 94760; 96361; 96372; 97110; 97162; 97530; 99285-25; A6590; A9270; G0378; G0480; J1650; J1953; J2060; J2919; J3480; J7030; J7050